=== PATIENT | male | born 1945 | race Caucasian/White ===

== ENCOUNTER 2019-01-18 09:14 | Day surgery (SDC) | payer MEDICARE ==
[~2019-01-18] VITALS: Ht 188 cm; Wt 95.5 kg
[~2019-01-18 09:14] MED LIST: HYDR-3245 PO; MULT-658 PO; SIMV20TA3 PO; VENL150C PO
[2019-01-18 10:28] VITALS: BP 145/100
[2019-01-18] MEDS ORDERED: LACTATED RINGERS 1,000 ML IV SCH (10:33)
[2019-01-18] MEDS ORDERED: GLYCOPYRROLATE 0.2MG/1ML, 5ML ONE ×2 (12:16→12:44)
[2019-01-18] MEDS ORDERED: MEPERIDINE/PF 25MG/ML,1ML IVPush PRN (13:00)
[2019-01-18] MEDS ORDERED: FENTANYL PF 100 MCG/2ML IV PRN (13:00)
[2019-01-18] MEDS ORDERED: OXYcodone 5 MG/5 ML ORAL.SOL UDC PO PRN (13:00)
[2019-01-18] MEDS ORDERED: HALOPERIDOL 5 MG/ML IV PRN (13:00)
[2019-01-18] MEDS ORDERED: HYDROmorphone 2 MG/ML, 1ML IVPush PRN (13:00)
[2019-01-18] MEDS ORDERED: PROMETHAZINE 25 MG/ML, 1ML IV PRN (13:00)
[2019-01-18] MEDS ORDERED: hydrALAzine 20 MG/ML, 1ML IV PRN (13:00)
[2019-01-18] MEDS ORDERED: ACETAMINOPHEN 325 MG TABLET PO PRN (13:00)
[2019-01-18] MEDS ORDERED: ONDANSETRON 2MG/ML, 2ML ONE (13:51)
[2019-01-18] MEDS ORDERED: DEXAMETHASONE 4 MG/ML, 1ML ONE (13:51)
[2019-01-18] MEDS ORDERED: CEFAZOLIN 1,000 MG ONE (13:51)
[2019-01-18] MEDS ORDERED: WATER-INJECTION,STERILE 10 ML IV ONE (13:51)
[2019-01-18] MEDS ORDERED: LIDOCAINE-MPF 2% ,5ML ONE (13:51)
[2019-01-18] MEDS ORDERED: SUCCINYLCHOLINE 20 MG/ML, 10ML ONE (13:51)
[2019-01-18] MEDS ORDERED: KETOROLAC 30 MG/1 ML ONE (13:51)
[2019-01-18] MEDS ORDERED: PROPOFOL 10 MG/ML, 20ML ONE (13:51)
[2019-01-18] MEDS ORDERED: hydrALAzine 20 MG/ML, 1ML ONE (14:06)
== END 2019-01-18 16:45 | disposition home or self-care (01) ==
LOC: OUT 09:14
PROVIDERS: ATTEND Urology
DX: N20.0 Calculus of kidney (principal); N40.0 Benign prostatic hyperplasia without lower urinary tract symptoms; F15.90 Other stimulant use, unspecified, uncomplicated; E78.5 Hyperlipidemia, unspecified; G89.29 Other chronic pain; M54.5 Low back pain; Z72.89 Other problems related to lifestyle; Z88.6 Allergy status to analgesic agent; Z88.8 Allergy status to other drugs, medicaments and biological substances; Z96.653 Presence of artificial knee joint, bilateral; Z96.641 Presence of right artificial hip joint
CPT/HCPCS: 50590; J0330; J0360; J0690; J1100; J1885; J2405; J2704; J7120